=== PATIENT | female | born 1990 | race Caucasian/White ===

== ENCOUNTER → 2018-01-12 11:59 | Outpatient (CLI) | payer BC, SELFPAY ==
--- NOTE | 2018-01-12 | DI.US.S_ITS ---
PROCEDURE: US PELVIC COMPLETE INDICATIONS: PAIN TECHNIQUE: Real-time scanning was performed of the pelvic organs, with image documentation. Additional endovaginal scanning was necessary due to incomplete visualization of the adnexal and endometrial structures by transabdominal scanning. COMPARISON: None. FINDINGS: Transabdominal scanning: Limited scanning through the kidneys shows no hydronephrosis. No pathologic free abdominal or pelvic fluid. Endovaginal scanning: Uterus: Uterus is normal in size at 3.5 x 5.5 x 7.0 cm, anteverted. The endometrium measures 11.2 mm in combined thickness. There is a small right-sided uterine fibroid, intramural, measuring 2.0 x 1.7 x 2.1 cm. Ovaries: The right ovary measures 3.6 x 2.3 x 2.6 cm and contains a 2.2 cm maximal dimension complex right ovarian cyst. The left ovary measures 1.6 x 1.6 x 2.7 cm. IMPRESSION: Incidental note is made of a 2.2 cm maximal dimension moderately complex right ovarian cyst, and a 2.1 cm maximal dimension uterine myometrial intramural fibroid. No abnormal endometrial mass or fluid collection is found. The left ovarian cyst may represent an involuting hemorrhagic ovarian cyst and followup in 6-8 weeks to confirm complete resolution is recommended. Dictated by: Dewey Casey M.D. on 01/12/2018 at 12:59 Approved by: Dewey Casey M.D. on 01/12/2018 at 13:09
== END ==
PROVIDERS: PCP Nurse Practitioner Family; Visit Provider Nurse Practitioner Family
DX: N92.6 Irregular menstruation, unspecified (principal); D25.1 Intramural leiomyoma of uterus; R10.2 Pelvic and perineal pain; N83.292 Other ovarian cyst, left side; N83.291 Other ovarian cyst, right side
CPT/HCPCS: 76830; 76856

== ENCOUNTER → 2018-03-19 08:49 | Outpatient (CLI) | payer BC, SELFPAY ==
--- NOTE | 2018-03-19 | DI.US.S_ITS ---
PROCEDURE: US PELVIC COMPLETE INDICATIONS: RIGHT OVARIAN CYST FOLLOW UP TECHNIQUE: Real-time scanning was performed of the pelvic organs, with image documentation. Additional endovaginal scanning was necessary due to incomplete visualization of the adnexal and endometrial structures by transabdominal scanning. COMPARISON: [facility], [place], US PELVIC COMPLETE, 01/12/2018, 12:13. FINDINGS: Transabdominal scanning: Limited scanning through the kidneys shows no hydronephrosis. No pathologic free abdominal or pelvic fluid. Endovaginal scanning: Uterus: Uterus is normal in size at 6.6 x 2.2 x 5.2 cm. The endometrium measures 10.2 mm in combined thickness. There is a intramural fibroid in anterior right uterine wall measuring 2.5 x 2.4 x 2.0 cm. Ovaries: Right ovary measures 3.0 x 2.6 x 2.4 cm. Left ovary measures 2.4 x 2.1 x 2.3 cm. There are several simple cysts in the right ovary with the largest one measuring 2.1 x 1.8 x 2.0 cm. A 2.2 cm complex cyst in the right ovary with internal echo is not identified. Multiple follicular cysts are seen in the left ovary, within physiological limits. IMPRESSION: 1. The 2.2 cm complex cyst in the right ovary with internal echo is no longer visualized. There are several simple cysts in the right ovary measuring up to 2.1 cm. 2. An intramural fibroid in the right side of the uterus. Dictated by: Ha Das M.D. on 03/19/2018 at 12:49 Approved by: Ha Das M.D. on 03/19/2018 at 12:57
== END ==
PROVIDERS: PCP Nurse Practitioner Family; Visit Provider Nurse Practitioner Family
DX: N83.291 Other ovarian cyst, right side (principal); D25.1 Intramural leiomyoma of uterus
CPT/HCPCS: 76830; 76856

== ENCOUNTER → 2018-04-22 16:34 | Outpatient (CLI) | payer BC, SELFPAY | PROVIDERS: PCP Nurse Practitioner Family; Visit Provider Specialist | DX: H53.9 Unspecified visual disturbance (principal); N92.6 Irregular menstruation, unspecified | CPT/HCPCS: 36415; 84146 ==

== ENCOUNTER → 2018-05-26 09:51 | Outpatient (CLI) | payer BC, SELFPAY ==
[2018-05-26 10:47] LABS: Prolactin 23.3 ng/mL (3.0-18.6)
== END ==
PROVIDERS: PCP Nurse Practitioner Family; Visit Provider Specialist
DX: E22.9 Hyperfunction of pituitary gland, unspecified (principal)
CPT/HCPCS: 36415; 84146

== ENCOUNTER → 2020-08-18 10:55 | Outpatient (CLI) | payer BC, SELFPAY ==
[2020-08-18] MEDS: COVID-19 VACC #1, MRNA(MOD) 100 MCG/0.5 ML VIAL IM (10:58)
== END ==
PROVIDERS: PCP Nurse Practitioner Family; Visit Provider Internal Medicine
DX: Z23 Encounter for immunization (principal)
CPT/HCPCS: 0011A; 91301

== ENCOUNTER → 2020-09-15 09:36 | Outpatient (CLI) | payer OTHER, SELFPAY ==
[2020-09-15] MEDS: COVID-19 VACC #2, MRNA(MOD) 100 MCG/0.5 ML VIAL IM (09:47)
== END ==
PROVIDERS: PCP Nurse Practitioner Family; Visit Provider Internal Medicine
DX: Z23 Encounter for immunization (principal)
CPT/HCPCS: 0012A; 91301